=== PATIENT | female | born 2000 | race Two or more races ===

== ENCOUNTER 2024-10-27 02:17 | Emergency (ER) | payer OTHER ==
[~2024-10-27] VITALS: Ht 162.6 cm; Wt 136.0 kg
--- NOTE | 2024-10-27 03:01 | ED.PDOC ---
History of Present Illness HPI Comments 23-year-old morbidly obese female who is brought in by ambulance from private residence for chief complaint of shortness of breath. Patient endorses on sudden, unprovoked, and atraumatic onset of symptom, this morning, when attempting to go to bed. Significant history of asthma and anxiety. No relief or improvement with at-home inhaler use, initially. Upon arrival to ED, patient reports on breathing improving. No further acute symptoms reported at this time. Chief Complaint: Asthma Time Seen by MD: 02:40 Reviewed Notes: Nurses Notes, Energy Operations Vice President Notes, Medications, Allergies Allergies: Coded Allergies: NO KNOWN ALLERGIES (Unverified , 10/27/24) Information Source: Patient, Emergency Med Personnel Mode of Arrival: Ambulatory Severity: Moderate Timing: Hours Duration: Since onset Prehospital treatment: 12 Lead EKG, Photogrammetric Tech Past Medical History PAST MEDICAL HISTORY: Asthma Past Medical History (Other): Morbid obesity Surgical History: Denies all surgeries CORRESPONDENT History: Denies all CORRESPONDENT Hx Family History Family History: Unknown Social History Smoker: Non-Smoker Alcohol: Denies ETOH Use Drugs: Denies Drug Use Lives In: Home All Other Systems: Reviewed and Negative (Comprehensive systems review obtained and negative except for what is stated in the HPI.) Physical Exam General Appearance: No Apparent Distress, Obese HEENT: Normal ENT Inspection, Pharynx Normal, TMs Normal Neck: Full Range of Motion, Non-Tender, Normal, Normal Inspection Respiratory: Chest Non-Tender, Lungs Clear, No Accessory Muscle Use, No Respiratory Distress, Normal Breath Sounds Cardiovascular: No Edema, No JVD, No Murmur, No Gallop, Normal Peripheral Pulses, Regular Rate/Rhythm Breast Exam: Deferred Gastrointestinal: No Organomegaly, Non Tender, No Pulsatile Mass, Normal Bowel Sounds, Soft Genitalia: Deferred Pelvic: Deferred Rectal: Deferred Extremities: No calf tenderness, Normal capillary refill, Normal inspection, Normal range of motion, Non-tender, No pedal edema Musculoskeletal : Apperance: Normal Neurologic: Alert, children's court magistrate II-XII nml as Tested, No Motor Deficits, Normal Affect, Normal Mood, No Sensory Deficits Cerebellar Function: Normal Reflexes: Normal Skin: Dry, Normal Color, Warm Lymphatic: No Adenopathy Was a procedure done? Was a procedure done?: No Differential Dx Considerations may include: URI, acute asthma exacerbation, anxiety attack, among others X-Ray, Labs, Meds, VS Vital Signs Date Time Temp Pulse Resp B/P (MAP) Pulse Ox O2 Delivery O2 Flow Rate FiO2 10/27/24 02:17 98.0 100 24 163/92 100 98.0 Time of 1ST Reevaluation: 03:10 Reevaluation 1ST: Unchanged Patient Education/Counseling: Diagnosis, Treatment, Need For Follow Up Family Education/Counseling: No Family Present Comments Patient has clear lungs. Her oxygen saturations is 100%. On room air. Her lungs are clear and she has no wheezes she speaks in full sentences but appears anxious. Patient states that she feels nervous but denies any acute stressors. Patient likely had a sudden anxiety attack I have ordered Xanax for her she is stable for discharge to follow up with your primary doctor. Additional Information Previous visits reviewed:N/A The following tests were ordered, and results were reviewed by me: N/A Additional Information was gathered from interviewing the following independent historians: EMS personnel I reviewed and agreed with the following test results read by other providers: N/A I discussed treatment and results with medical personnel and: patient SEPSIS Sepsis Screen Date sepsis recognized/suspect: Oct 27, 2024 Time Sepsis recognized/suspect: 216 Recent Procedure: No On Antibiotic Therapy: No Respiratory Rate >20: No Heart Rate >90: No Temp<36 C (96.8 F) or >38.3 C: No SBP <90 or MAP <65 mmHG: No New Acute Mental Status Change: No Is the patient on CPAP, BIPAP,: No Vital Signs Date Time Temp Pulse Resp B/P (MAP) Pulse Ox O2 Delivery O2 Flow Rate FiO2 10/27/24 02:17 98.0 100 24 163/92 100 98.0 Departure 1 Departure Time of Disposition: 03:03 Impression: Primary Impression: Anxiety Disposition: 01 HOME / SELF CARE / HOMELESS Condition: Good Discharged With: Self Critical Care Note Critical Care Time?: No Stability Stability form required: No Heart Score Heart Score: Heart Score Response (Comments) Value History N/A 0 EKG N/A 0 Age N/A 0 Risk Factors N/A 0 Troponin N/A 0 Total 0 I personally scribed for ERAN HOWARD MD ([email or web address]) on 10/27/24 at 03:01. Electronically submitted by Freddy Ibarra ([email or web address]). ERAN HOWARD MD Oct 27, 2024 03:01
[2024-10-27 03:07] VITALS: PULSE 95; RESP 18; O2SAT 96
[2024-10-27] MEDS: ALPRAZolam 0.25 MG TAB PO ONE (03:17)
[2024-10-27 03:42] VITALS: BP 147/82; PULSE 98; RESP 12; TEMP 98.1; O2SAT 98
[2024-10-27] MEDS ORDERED: CEPH500C PO (17:37)
== END 2024-10-27 03:44 | disposition home or self-care (01) ==
LOC: ER 02:17 → EDBD 02:17 → ER 03:44
DX: F41.9 Anxiety disorder, unspecified (principal); E66.01 Morbid (severe) obesity due to excess calories; Z68.43 Body mass index [BMI] 50.0-59.9, adult

== ENCOUNTER 2024-10-27 14:30 | Emergency (ER) | payer OTHER ==
[~2024-10-27] VITALS: Ht 162.6 cm; Wt 133.9 kg
--- NOTE | 2024-10-27 14:43 | ECG ---
[facility] Test Date: 2024-10-27 Test Time: 14:38:50 Pat Name: MENG EDWARDS Department: ED Room: Gender: F Residence Manager: KAREN : 2000 Requested By: JOSE CRUZ Order Number: [id number] Reading MD: Sergio Johnson Measurements Intervals [place] Rate: 97 P: 34 [place]: 128 QRS: 40 QRSD: 92 T: 32 QT: 369 QTc: 469 Interpretive Statements Sinus rhythm Electronically Signed On 10-29-2024 18:43:50 PDT by Sergio Johnson Please click the below link to view image of tracing.
[2024-10-27 15:49] LABS: Hematocrit 43.6 % (36.0-46.0); Hemoglobin 14.6 g/dL (12.2-16.2); Mean Corpuscular Hemoglobin 30.3 pg (28.0-32.0); Mean Corpuscular Volume 90.3 fL (80.0-100.0); Nucleated Red Blood Cells % 0.2 %
[2024-10-27 15:54] LABS: Chloride 104 mmol/L (98-107); Potassium 3.6 mmol/L (3.5-5.1); Sodium 137 mmol/L (136-145)
[2024-10-27 15:55] LABS: Anion Gap 12 (5-15); Carbon Dioxide 21 mmol/L (20-31)
[2024-10-27 15:56] LABS: Calcium 9.4 mg/dL (8.7-10.4)
[2024-10-27 16:00] LABS: BUN/Creatinine Ratio 12.1 (10.0-20.0)
--- NOTE | 2024-10-27 16:03 | ED.PDOC ---
SOB-HPI HPI Comments 23y F who presents to the ED for chief complaint of shortness of breath. Pt states she has been having shortness of breath since 1000 this AM. Pt states she started to have pain and associated numbness in her hands and felt like she was also having panic attack and came to the ED for further evaluation. Pt in the ED, otherwise has noted stable vitals with 02 sat of 98% on room air and otherwise stable vitals. Pt states she came to [facility] last night AM and was dx with panic attack and given anxiety medication and discharged. Pt states she has history of asthma and used inhaler last night and states using her inhaler led to her panic attack. Pt otherwise denies any other symptoms at this time. Chief Complaint: Shortness of Breath Time Seen by MD: 16:02 Reviewed notes: Medications, Allergies Information Source: Patient Mode of Arrival: Ambulatory Past Medical History PAST MEDICAL HISTORY: Asthma Surgical History: Denies all surgeries ORE FEEDER History: Denies all ORE FEEDER Hx Family History Family History: Unknown Social History Smoker: Non-Smoker Alcohol: Denies ETOH Use Drugs: Denies Drug Use Lives In: Home Constitutional: denies: chills, diaphoresis, fatigue, fever, malaise, sweats, weakness, others EENTM: denies: blurred vision, double vision, ear bleeding, ear discharge, ear drainage, ear pain, ear ringing, eye pain, eye redness, hearing loss, mouth pain, mouth swelling, nasal discharge, nose bleeding, nose congestion, nose pain, photophobia, tearing, throat pain, throat swelling, voice changes, others Respiratory: reports: shortness of breath; denies: cough, hemoptysis, orthopnea, SOB at rest, SOB with excertion, stridor, wheezing, others Cardiovascular: denies: chest pain, dizzy spells, diaphoresis, Dyspnea on exertion, edema, irregular heart beat, left arm pain, lightheadedness, palpitations, PND, syncope, others Gastrointestinal: denies: abdomen distended, abdominal pain, blood streaked bowels, constipated, diarrhea, dysphagia, difficulty swallowing, hematemesis, melena, nausea, poor appetite, poor fluid intake, rectal bleeding, rectal pain, vomiting, others Genitourinary: denies: abnormal vagina bleeding, burning, dyspareunia, dysuria, flank pain, frequency, hematuria, incontinence, pain, , vagina discharge, urgency, others Neurological: denies: dizziness, fainting, headache, left sided numbness, left sided weakness, numbness, paresthesia, pre-existing deficit, right sided numbness, right sided weakness, seizure, speech problems, tingling, tremors, weakness, others Musculoskeletal: denies: back pain, gout, joint pain, joint swelling, muscle pain, muscle stiffness, neck pain, others Integumetry: denies: bruises, change in color, change in hair/nails, dryness, laceration, lesions, lumps, rash, wounds, others Allergic/Immunocompromised: denies: Difficulty Healing, Frequent Infections, Hives, Itching, others Hematologic/Lymphatic: denies: anemia, blood clots, easy bleeding, easy bruising, swollen glands, others Endocrine: denies: excessive hunger, excessive sweating, excessive thirst, excessive urination, flushing, intolerance to cold, intolerance to heat, unexplained weight gain, unexplained weight loss, others Psychiatric: denies: anxiety, bipolar disorder, depression, hopeless, panic disorder, schizophrenia, sleepless, suicidal, others All Other Systems: Reviewed and Negative Physical Exam General Appearance: No Apparent Distress, Normal HEENT: Normal ENT Inspection, Pharynx Normal, TMs Normal Neck: Full Range of Motion, Non-Tender, Normal, Normal Inspection Respiratory: Chest Non-Tender, Lungs Clear, No Accessory Muscle Use, No Respiratory Distress, Normal Breath Sounds Cardiovascular: No Edema, No JVD, No Murmur, No Gallop, Normal Peripheral Pulses, Regular Rate/Rhythm Breast Exam: Deferred Gastrointestinal: No Organomegaly, Non Tender, No Pulsatile Mass, Normal Bowel Sounds, Soft Genitalia: Deferred Pelvic: Deferred Rectal: Deferred Extremities: No calf tenderness, Normal capillary refill, Normal inspection, Normal range of motion, Non-tender, No pedal edema Musculoskeletal : Apperance: Normal Neurologic: Alert, graining press operator II-XII nml as Tested, No Motor Deficits, Normal Affect, Normal Mood, No Sensory Deficits Cerebellar Function: Normal Reflexes: Normal Skin: Dry, Normal Color, Warm Lymphatic: No Adenopathy Was a procedure done? Was a procedure done?: No Differential Dx Differential Diagnosis: Anxiety, Asthma, Bronchitis, Panic Attack, Respiratory Distress X-Ray, Labs, Meds, VS Vital Signs Date Time Temp Pulse Resp B/P (MAP) Pulse Ox O2 Delivery O2 Flow Rate FiO2 10/27/24 14:38 97 10/27/24 14:31 97.8 94 24 156/91 98 97.8 Lab Test 10/27/24 17:01 10/27/24 14:44 Range/Units Urine Color Light-yellow Yellow Urine Clarity Turbid H Clear Urine pH 6.5 5.0-9.0 Urine Specific [place] 1.040 H 1.001-1.035 Urine Protein Negative Negative Urine Ketones Negative Negative Urine Blood Negative Negative /uL Urine Nitrite Negative Negative Urine Bilirubin Negative Negative Urine Urobilinogen Normal Negative mg/dL Urine Leukocyte Esterase Trace Negative /uL Urine RBC 2 0 - 4 /hpf Urine Microscopic WBC 7 H 0-5 /HPF Urine Squamous Epithelial Cells Mod <5 /hpf Urine Bacteria Few H None Seen /hpf Urine Glucose 4+ H Normal mg/dL White Blood Count 10.6 4.4-10.8 10^3/uL Red Blood Count 4.83 4.0-5.20 10^6/uL Hemoglobin 14.6 12.2-16.2 g/dL Hematocrit 43.6 36.0-46.0 % Mean Corpuscular Volume 90.3 80.0-100.0 fL Mean Corpuscular Hemoglobin 30.3 28.0-32.0 pg Mean Corpuscular Hemoglobin Concent 33.5 32.0-36.0 g/dL Red Cell Distribution Width 13.6 11.8-14.3 % Platelet Count 313 140-450 10^3/uL Mean Platelet Volume 9.6 6.9-10.8 fL Neutrophils (%) (Auto) 64.2 37.0-80.0 % Lymphocytes (%) (Auto) 30.2 10.0-50.0 % Monocytes (%) (Auto) 4.9 0.0-12.0 % Eosinophils (%) (Auto) 0.5 0.0-7.0 % Basophils (%) (Auto) 0.2 0.0-2.0 % Neutrophils # (Auto) 6.8 1.6-8.6 10 ^3/uL Lymphocytes # (Auto) 3.2 0.4-5.4 10 ^3/uL Monocytes # (Auto) 0.5 0-1.3 10 ^3/uL Eosinophils # (Auto) 0 0-0.8 10 ^3/uL Basophils # (Auto) 0 0-0.2 10 ^3/uL Nucleated Red Blood Cells 0.2 % D-Dimer, Quantitative 0.32 0.0-0.49 mg/L FEU Sodium Level 137 136-145 mmol/L Potassium Level 3.6 3.5-5.1 mmol/L Chloride Level 104 98-107 mmol/L Carbon Dioxide Level 21 20-31 mmol/L Anion Gap 12 5-15 Blood Urea Nitrogen 8 L 9-23 mg/dL Creatinine 0.66 0.550-1.02 mg/dL Glomerular Filtration Rate Calc 127 >90 mL/min BUN/Creatinine Ratio 12.1 10.0-20.0 Serum Glucose 300 H 74-106 mg/dL Calcium Level 9.4 8.7-10.4 mg/dL Troponin I High Sensitivity < 3 L </=34 ng/L X-Ray, Labs, Meds, VS Comment 23-year-old female here today with a presentation consistent with a anxiety attack. Vital signs stable, afebrile. Physical exam without any acute findings. Labs overall reassuring as well with evidence of negative troponin, negative D-dimer, no significant electrolyte abnormality, no renal dysfunction, in no significant leukocytosis. UA with evidence of UTI for which the patient was prescribed Keflex to her preferred pharmacy. Doubt PE, D-dimer negative, PERC negative during this visit however patient was tachycardic last p.m. during prior visit but in the setting of albuterol use. Doubt ACS, EKG without evidence of acute ischemia and negative troponin. Patient was given strict return precautions and discharged home in stable condition ambulating with a steady gait in no distress. The patient was instructed to follow up with the primary care provider within 2-3 days for re-evaluation. Time of 1ST Reevaluation: 15:00 Reevaluation 1ST: Improved Time of 2ND Reevaluation: 17:36 Reevaluation 2ND: Improved Patient Education/Counseling: Diagnosis, Treatment Family Education/Counseling: No Family Present SEPSIS Sepsis Screen Date sepsis recognized/suspect: Oct 27, 2024 Time Sepsis recognized/suspect: 1433 Recent Procedure: No On Antibiotic Therapy: No Respiratory Rate >20: Yes Heart Rate >90: Yes Temp<36 C (96.8 F) or >38.3 C: No SBP <90 or MAP <65 mmHG: No New Acute Mental Status Change: No Is the patient on CPAP, BIPAP,: No Vital Signs Date Time Temp Pulse Resp B/P (MAP) Pulse Ox O2 Delivery O2 Flow Rate FiO2 10/27/24 14:38 97 10/27/24 14:31 97.8 94 24 156/91 98 97.8 Laboratory Tests Test 10/27/24 14:44 White Blood Count 10.6 10^3/uL (4.4-10.8) Departure 1 Departure Time of Disposition: 17:36 Impression: Primary Impression: Anxiety Additional Impression: UTI (urinary tract infection) Disposition: HOME / SELF CARE / HOMELESS Condition: Stable e-Prescriptions Cephalexin Monohydrate (Cephalexin) 500 Mg Cap 500 MG PO Q6HR for 5 Days, #20 TAB Prov: JOSE CRUZ MD 10/27/24 Discharged With: Self Critical Care Note Critical Care Time?: No Stability Stability form required: No Heart Score Heart Score: Heart Score Response (Comments) Value History N/A 0 EKG N/A 0 Age N/A 0 Risk Factors N/A 0 Troponin N/A 0 Total 0 I personally scribed for JOSE CRUZ MD ([email or web address]) on 10/27/24 at 16:03. Electronically submitted by Luz Flowers ([email or web address]). JOSE CRUZ MD Oct 27, 2024 16:03
[2024-10-27 16:06] LABS: Blood Urea Nitrogen 8 mg/dL (9-23); Glucose 300 mg/dL (74-106)
[2024-10-27 17:09] LABS: Urine Protein, UAD Negative (Negative)
[2024-10-27] MEDS ORDERED: CEPH500C PO (17:37)
[2024-10-27 19:00] VITALS: BP 131/86; PULSE 86; RESP 20; TEMP 98.8; O2SAT 99
== END 2024-10-27 19:09 | disposition home or self-care (01) ==
LOC: ER 14:30
DX: F41.9 Anxiety disorder, unspecified (principal); N39.0 Urinary tract infection, site not specified
CPT/HCPCS: 36415; 80048; 81001; 84484; 85025; 85379; 93005